=== PATIENT | female | born 1980 | race Caucasian/White ===

== ENCOUNTER 2017-03-07 10:16 | Emergency (ER) | payer OTHER ==
[2017-03-07 10:41] VITALS: BP 127/85
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
== END 2017-03-07 11:05 | disposition left against medical advice (07) ==
LOC: UCEAST 10:16
DX: F11.20 Opioid dependence, uncomplicated (principal); Z53.21 Procedure and treatment not carried out due to patient leaving prior to being seen by health care provider
CPT/HCPCS: 99212; G0463